=== PATIENT | female | born 1955 | race Caucasian/White ===

== ENCOUNTER 2023-11-20 22:50 | Emergency (ER) | payer MEDICARE ==
[~2023-11-20] VITALS: Ht 152.4 cm; Wt 38.3 kg
[2023-11-20 23:32] LABS: BASO % 0.1 % (0.0-1.0); HEMATOCRIT 43.4 % (37.0-47.0); LYMPH # 0.5 10*3/uL (1.3-4.4); LYMPH % 6.1 % (27.0-41.0); MEAN CELL VOLUME 93.3 fl (81.0-99.0); MEAN CORPUSCULAR HGB CONC 31.1 g/dl (33.0-37.0); MEAN PLATELET VOLUME 9.7 fl (9.6-12.3); MONO # 0.5 10*3/uL (0.1-1.0); MONO % 6.8 % (3.0-9.0); NEUT # 6.7 10*3/uL (2.3-7.9); NEUT % 86.6 % (47.0-73.0); PLATELET COUNT AUTOMATED 231 10*3/uL (130-400); RED BLOOD COUNT 4.65 10*6/uL (4.10-5.10); RED CELL DISTRI WIDTH 15.7 % (0-14.5); WHITE BLOOD COUNT 7.7 10*3/uL (4.8-10.8)
[2023-11-20 23:53] LABS: POTASSIUM 3.9 mmol/L (3.4-5.1); TOTAL PROTEIN 7.9 gm/dL (6.0-8.0)
[2023-11-21 00:03] LABS: ACT PARTIAL THROMBO TIME 22.8 SECONDS (20.0-32.1)
[2023-11-21] MEDS ORDERED: SODIUM CHLORIDE 0.9% 1,000 ML IV ONE ×2 (02:20→13:30)
[2023-11-21 02:40] LABS: BILIRUBIN Negative (Negative); BLOOD 3+ (Negative); CLARITY Clear (Clear); COLOR Yellow (Yellow); GLUCOSE Negative (Negative); KETONE 3+ (Negative); LEUKO ESTERASE Negative (Negative); NITRITE Negative (Negative); PH 5.5 (4.5-8.0)
[2023-11-21 02:52] LABS: EPITHELIAL CELLS 21-30; RBC 41-50 rbc/hpf (0-2)
[2023-11-21 02:53] LABS: BACTERIA TRACE
[2023-11-21] MEDS ORDERED: AZITHROMYCIN 250 ML IV ONE (04:05)
[2023-11-21] MEDS ORDERED: Ceftriaxone Sodium 1 GM/10 ML SYR IV ONE (04:05)
[2023-11-21] MEDS ORDERED: MORPHINE Sulfate 2 MG/ML SYR IV ONE ×2 (13:30→20:50)
[2023-11-22] MEDS ORDERED: DEXTROSE 50% 25 GM/50 ML SYR IV ONE (03:45)
[2023-11-22] MEDS ORDERED: DEXTROSE 10 % IN WATER 250 ML IV ONE (03:58)
[2023-11-22] MEDS ORDERED: AZITHROMYCIN 250 ML IV ONE (04:20)
[2023-11-22] MEDS ORDERED: Ceftriaxone Sodium 1 GM/10 ML SYR IV ONE (04:20)
[2023-11-22] MEDS ORDERED: SODIUM CHLORIDE 0.9% 1,000 ML IV ONE (04:20)
[2023-11-22] MEDS ORDERED: Ondansetron Hydrochloride 4 MG/2 ML VIAL IV ONE (09:35)
[2023-11-22] MEDS ORDERED: fentaNYL CITRATE/PF 50 MCG/ML SYRINGE IV ONE (09:35)
[2023-11-22] MEDS ORDERED: DEXTROSE 5% 1,000 ML IV SCH (13:40)
== END 2023-11-22 18:50 | disposition short-term general hospital (02) ==
LOC: ED 22:50
PROVIDERS: Emergency Medicine
DX: G93.41 Metabolic encephalopathy (principal); N17.0 Acute kidney failure with tubular necrosis; N63.20 Unspecified lump in the left breast, unspecified quadrant; R82.4 Acetonuria; J90 Pleural effusion, not elsewhere classified; Z85.3 Personal history of malignant neoplasm of breast